=== PATIENT | female | born 1980 | race Caucasian/White ===

== ENCOUNTER 2018-11-26 11:49 | Emergency (ER) | payer MEDICAID ==
[~2018-11-26] VITALS: Ht 165.1 cm; Wt 81.8 kg
[2018-11-26] MEDS ORDERED: METF-960 PO (12:01)
[2018-11-26 12:04] LABS: GLUCOSE,POINT OF CARE 250 MG/DL (70-110)
[2018-11-26] MEDS ORDERED: TraMADol HCL 50 MG TABLET PO ONE (13:30)
[2018-11-26 17:17] VITALS: BP 138/80
== END 2018-11-26 17:18 | disposition home or self-care (01) ==
LOC: EMS 11:51
DX: M25.511 Pain in right shoulder (principal); R03.0 Elevated blood-pressure reading, without diagnosis of hypertension; E11.9 Type 2 diabetes mellitus without complications; Z79.84 Long term (current) use of oral hypoglycemic drugs; Z88.8 Allergy status to other drugs, medicaments and biological substances; Z91.041 Radiographic dye allergy status; Z88.5 Allergy status to narcotic agent
CPT/HCPCS: 73200